=== PATIENT | female | born 1985 | race Two or more races ===

== ENCOUNTER → 2016-11-12 | Day surgery (SDC) | payer OTHER ==
--- NOTE | 2016-11-17 17:02 | PATH ---
Surgical Pathology Report Patient Name: FELICIANO PETERS Med. Rec. #: [id number] /Age/Gender: 1985 (Age: 31) / F Account: [id number] Location: [facility] Taken: 11/12/2016 Received: 11/12/2016 Reported: 11/17/2016 Physicians: Chikis Springer Specimen(s) Received RIGHT AXILLARY LYMPH NODE CORE BIOPSY Clinical History US findings: probably benign Final Diagnosis LYMPH NODE, RIGHT AXILLARY, US GUIDED CORE BIOPSY: FRAGMENTS OF BENIGN LYMPH NODE WITH FOCAL DERMATOPATHIC CHANGE. NO EVIDENCE OF LYMPH PROLIFERATIVE PROCESS. NO METASTATIC CARCINOMA IDENTIFIED. Comment: [facility] [place] ([id number], Dr. Ca). The diagnosis above reflects the consultation opinion. The specimen consists of needle core-shaped fragments of lymphoid tissue and adipose tissue. The architecture of the lymph node is overall preserved; the sinuses are patent. Focal areas with pigment deposition are seen. Follicles with germinal center formation are present. Immunostains demonstrate normal distribution of B- and T-cells. Aberrant immunoprofiles are not seen. The plasma cells are polytypic. CD20 and CD3 performed and interpreted at [facility] show mixed B and T lymphocytes. Ae1/Ae3 keratin is negative. Additional immunohistochemical stains [facility] [place] show the following: PAX-5 highlights B cells, CD5 highlights cells; CD10 and BCL-6 are positive in germinal center cells; BCL-1 is negative, BCL-2 is negative in germinal centers. NAVDEEP shows very rare positive cells;CD21 and CD23 highlights follicular dendritic cells; Rote and Lambda DELMY highlight polytypic plasma cells. Ki67 spots in germinal centers. Electronically Signed Star Quintana M.D. Gross Description Received in formalin, labeled "right axillary biopsy," is a 1.4 x 1.2 x 0.2 cm aggregate of multiple concepcion-yellow, irregular to cylindrical portions of fibroadipose tissue. The formalin is filtered and the specimen is entirely submitted in one cassette. Time to formalin fixation: 2 minutes Total formalin fixation time: Approximately 8 hours. 11/12/2016 saudi11/12/2016
== END | disposition home or self-care (01) ==
LOC: FRADUS-SUR 09:09
PROVIDERS: ATTEND Physician Assistant
PROC: 07B53ZX Excision of Right Axillary Lymphatic, Percutaneous Approach, Diagnostic (ICD-10-PCS; principal; 2016-11-12)
PROC: BW40ZZZ Ultrasonography of Abdomen (ICD-10-PCS; 2016-11-12)
DX: R59.9 Enlarged lymph nodes, unspecified (principal)
CPT/HCPCS: 19083; 38505; 76942; 87899; 88305-TC; 88341-TC; 88342-TC; A4648